=== PATIENT | female | born 2000 | race Caucasian/White ===

== ENCOUNTER 2024-01-28 11:49 | Emergency (ER) | payer MEDICAID ==
[~2024-01-28] VITALS: Ht 152.4 cm; Wt 59.0 kg
[2024-01-28 11:57] VITALS: O2SAT 98
[2024-01-28] MEDS ORDERED: DIPH25CA83 MT (16:06)
[2024-01-28] MEDS ORDERED: IBUP-1523 MT (16:06)
[2024-01-28] MEDS ORDERED: P50 MT (16:06)
[2024-01-28 16:27] VITALS: BP 117/73; PULSE 76; RESP 18; TEMP 98.3
== END 2024-01-28 16:30 | disposition home or self-care (01) ==
LOC: ER 12:13
DX: B02.9 Zoster without complications (principal); R21 Rash and other nonspecific skin eruption
CPT/HCPCS: 99281; 99283